=== PATIENT | male | born 1985 | race Caucasian/White ===

== ENCOUNTER 2018-09-08 23:50 | Emergency (ER) | payer SELFPAY ==
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
== END 2018-09-09 00:22 | disposition left against medical advice (07) ==
LOC: ER 23:50
DX: M79.602 Pain in left arm (principal); M79.604 Pain in right leg; V89.2XXA Person injured in unspecified motor-vehicle accident, traffic, initial encounter
CPT/HCPCS: 99284

== ENCOUNTER 2019-04-05 09:58 | Emergency (ER) | payer SELFPAY ==
--- NOTE | 2019-04-05 11:28 | RAD REPORT ---
EXAM DESCRIPTION: CT - Head Brain Wo Cont - 04/05/2019 11:18 am CLINICAL HISTORY: HEADACHE COMPARISON: No comparisons TECHNIQUE: All CT scans are performed using dose optimization technique as appropriate and may inclu de automated exposure control or mA/KV adjustment according to patient size. FINDINGS: No intracranial hemorrhage, hydrocephalus or extra-axial fluid collection.No areas of brai n edema or evidence of midline shift. Moderate fluid is seen in the right maxillary antrum. The paranasal sinuses and mastoids are otherwis e clear. The calvarium is intact. IMPRESSION: No acute intracranial abnormality.
[2019-04-05] MEDS ORDERED: NA CHLORIDE 0.9% 1,000 ML ONE (11:35)
[2019-04-05] MEDS ORDERED: NA CHLORIDE 0.9% 100 ML IV ONE (11:35)
[2019-04-05] MEDS ORDERED: METOCLOPRAMIDE 10 MG/2mL INJ ONE (11:35)
[2019-04-05] MEDS ORDERED: DIPHENHYDRAMINE 50 MG/ML VIAL ONE (11:35)
[2019-04-05 11:57] LABS: Absolute Lymphocytes (CBC) 1.5 K/uL (0.7-4.9); Absolute Monocytes 0.3 K/uL (0.1-1.3); Absolute Neutrophil 4.7 K/uL (1.8-8.0); Basophils % 1.1 % (0-1.3); Eosinophils % 1.2 % (0-4.4); Hematocrit 47.3 % (39.6-49.0); Lymphocytes % 22.7 % (15.3-44.8); MPV 7.8 fL (7.6-11.3); Monocytes % 4.8 % (3.3-12.3); RBC Red Blood Cell Count 5.16 M/uL (4.33-5.43)
[2019-04-05 12:06] LABS: Potassium 3.8 mmol/L (3.5-5.1)
--- NOTE | 2019-04-05 13:37 | EDPHYS ---
Physician Documentation [facility] Name: Jules Amos Age: 33 yrs Sex: Male : 1985 Arrival Date: 04/05/2019 Time: 10:06 Bed 15 Private MD: None, None ED Physician Juan Miguel Hale HPI: 04/05 11:08 This 33 yrs old Male presents to ER via Carried with complaints of Headache. rn 11:08 The patient complains of pain to the forehead, right protestant and left protestant. The rn patient describes the headache as aching, throbbing. Onset: The symptoms/episode began/occurred 2 day(s) ago. Severity of symptoms: At its worst the pain was moderate, in the emergency department the pain is unchanged. The symptoms are alleviated by nothing. the symptoms are aggravated by lights, stress. The patient has experienced similar episodes in the past. The patient has not recently seen a physician. REports hx of headache but not this bad, this one worse because not going away, took hydrocodone, no trauma, no fever, doesn't feel sick, no sick contacts. NO focal neurological problems. Reports threw up once due to pain.. Historical: - Allergies: 10:09 No Known Allergies; sv - PMHx: 10:09 Seizures; sv - PSHx: 10:09 wrist; sv - Immunization history:: Adult Immunizations up to date. - Social history:: Smoking status: Patient uses tobacco products, smokes one-half pack cigarettes per day. - Ebola Screening: : No symptoms or risks identified at this time. - Family history:: not pertinent. - Hospitalizations: : No recent hospitalization is reported. ROS: 11:08 Constitutional: Negative for fever, chills, and weight loss, Eyes: Negative for injury, rn pain, redness, and discharge, ENT: Negative for injury, pain, and discharge, Neck: Negative for injury, pain, and swelling, Cardiovascular: Negative for chest pain, palpitations, and edema, Respiratory: Negative for shortness of breath, cough, wheezing, and pleuritic chest pain, Abdomen/GI: Negative for abdominal pain, diarrhea, and constipation, MS/Extremity: Negative for injury and deformity, Skin: Negative for injury, rash, and discoloration, Neuro: Negative for numbness, tingling, and seizure. Exam: 11:10 Constitutional: This is a well developed, well nourished patient who is awake, alert, rn appears uncomfortable, covering face with pillow Head/Face: Normocephalic, atraumatic. Eyes: Pupils equal round and reactive to light, extra-ocular motions intact. Lids and lashes normal. Conjunctiva and sclera are non-icteric and not injected. Cornea within normal limits. Periorbital areas with no swelling, redness, or edema. ENT: MMM Neck: Trachea midline, no thyromegaly or masses palpated, and no cervical lymphadenopathy. Supple, full range of motion without nuchal rigidity, or vertebral point tenderness. No Meningismus. Skin: Warm, dry with normal turgor. Normal color with no rashes, no lesions, and no evidence of cellulitis. MS/ Extremity: Pulses equal, no cyanosis. Neurovascular intact. Full, normal range of motion. Equal circumference. Neuro: Awake and alert, GCS 15, oriented to person, place, time, and situation. Cranial nerves II-XII grossly intact. Motor strength 5/5 in all extremities. Sensory grossly intact. Cerebellar exam normal. Vital Signs: 10:09 BP 143 / 95; Pulse 94; Resp 18; Temp 98.4(O); Pulse Ox 99% ; Weight 81.65 kg; Height 6 sv ft. 1 in. (185.42 cm); Pain 10/10; 11:51 BP 132 / 86; Pulse 71; Resp 17; Temp 98.2(O); Pulse Ox 100% on R/A; mh5 12:50 BP 127 / 81; Pulse 72; Resp 18; Temp 98.0(O); Pulse Ox 100% on R/A; mh5 10:09 Body Mass Index 23.75 (81.65 kg, 185.42 cm) sv Charli Coma Score: 13:34 Eye Response: spontaneous(4). Verbal Response: oriented(5). Motor Response: obeys rn commands(6). Total: 15. MDM: 11:00 Patient medically screened. rn 13:34 Differential diagnosis: cluster headache, hypertensive headache, migraine, tension rn headache, vasomotor headache, flu/mono. Data reviewed: vital signs, nurses notes, lab test result(s), radiologic studies, CT scan, and as a result, I will discharge patient. Counseling: I had a detailed discussion with the patient and/or guardian regarding: the historical points, exam findings, and any diagnostic results supporting the discharge/admit diagnosis, lab results, radiology results, the need for outpatient follow up, to return to the emergency department if symptoms worsen or persist or if there are any questions or concerns that arise at home. Response to treatment: the patient's symptoms have markedly improved after treatment, and as a result, I will discharge patient. Special discussion: I discussed with the patient/guardian in detail that at this point there is no indication for admission to the hospital. It is understood, however, that if the symptoms persist or worsen the patient needs to return immediately for re-evaluation. ED course: Patient sleeping, pain markedly improved, ct head neg, w/u neg, will dc home as migraine.. 04/05 11:07 Order name: CBC with Diff; Complete Time: 12:50 rn 04/05 11:07 Order name: Basic Metabolic Panel; Complete Time: 12:50 rn 04/05 11:07 Order name: Flu; Complete Time: 12:50 rn 04/05 11:07 Order name: CT Head Brain wo Cont; Complete Time: 11:35 rn 04/05 11:10 Order name: [place] Screen Profile; Complete Time: 12:50 rn 04/05 11:07 Order name: IV Start; Complete Time: 11:35 rn Administered Medications: 11:34 Drug: NS 0.9% 1000 ml Route: IV; Rate: 1000 ml; Site: right antecubital; ph 13:55 Follow up: IV Status: Completed infusion; IV Intake: 1000ml ss 11:34 Drug: Benadryl 50 mg Route: IVP; Site: right antecubital; ph 13:55 Follow up: Response: No adverse reaction; Pain is decreased ss 11:35 Drug: Reglan 10 mg {Note: mixed w/ 100mL NS.} Route: IVP; Site: right antecubital; ph 13:55 Follow up: Response: No adverse reaction; Pain is decreased ss Disposition: 04/05/19 13:35 Discharged to Home. Impression: Migraine. - Condition is Stable. - Discharge Instructions: Migraine Headache. - Medication Reconciliation Form, Thank You Letter, Antibiotic Education, Prescription Opioid Use form. - Follow up: Private Physician; When: As needed; Reason: Recheck today's complaints, Re-evaluation by your physician. - Problem is new. - Symptoms have improved. Signatures: Dispatcher [employer] Jess Ward, RN RN Juan Miguel Jean Baptiste MD MD rn Smirch, Shelby, RN RN ss Hall, Patricia, RN RN ph Corrections: (The following items were deleted from the chart) 13:56 13:35 04/05/2019 13:35 Discharged to Home. Impression: Migraine. Condition is Stable. ss Forms are Medication Reconciliation Form, Thank You Letter, Antibiotic Education, Prescription Opioid Use. Follow up: Private Physician; When: As needed; Reason: Recheck today's complaints, Re-evaluation by your physician. Problem is new. Symptoms have improved. rn
--- NOTE | 2019-04-05 13:37 | ER ---
Nurse's Notes [facility] Name: Jules Amos Age: 33 yrs Sex: Male : 1985 Arrival Date: 04/05/2019 Time: 10:06 Bed 15 Private MD: None, None Diagnosis: Migraine Presentation: 04/05 10:06 Presenting complaint: Patient states: headache behind eyes and temporal area, nausea sv since today. Transition of care: patient was not received from another setting of care. Onset of symptoms was April 05, 2019. Risk Assessment: Do you want to hurt yourself or someone else? Patient reports no desire to harm self or others. Care prior to arrival: Medication(s) given: hydrocodone. 10:06 Method Of Arrival: Carried sv 10:06 Acuity: VIDHI 3 sv 11:38 Initial Sepsis Screen: Does the patient meet any 2 criteria? No. Patient's initial ph sepsis screen is negative. Does the patient have a suspected source of infection? No. Patient's initial sepsis screen is negative. Triage Assessment: 10:09 Headache History: The patient has had previous headaches and this one is different than sv previous episodes, and this one is more severe than previous episodes. General: Appears in no apparent distress. uncomfortable, well developed, Behavior is calm, cooperative, appropriate for age. Pain: Complains of pain in right eye, left eye, right rastafarian and left rastafarian Pain currently is 10 out of 10 on a pain scale. Pain began this morning. Neuro: Level of Consciousness is awake, alert, obeys commands, Oriented to person, place, time, situation, Moves all extremities. Full function. Respiratory: Respiratory effort is even, unlabored, Respiratory pattern is regular, symmetrical. Derm: Skin is pink, warm \\T\\ dry. 11:39 Pain: Also complains of photophobia. ph Historical: - Allergies: 10:09 No Known Allergies; sv - PMHx: 10:09 Seizures; sv - PSHx: 10:09 wrist; sv - Immunization history:: Adult Immunizations up to date. - Social history:: Smoking status: Patient uses tobacco products, smokes one-half pack cigarettes per day. - Ebola Screening: : No symptoms or risks identified at this time. - Family history:: not pertinent. - Hospitalizations: : No recent hospitalization is reported. Screenin:38 Abuse screen: Denies threats or abuse. Denies injuries from another. Nutritional ph screening: No deficits noted. Tuberculosis screening: No symptoms or risk factors identified. Fall Risk None identified. Assessment: 11:35 General: Appears in no apparent distress. uncomfortable, well groomed, Behavior is ph calm, cooperative, appropriate for age, Reports fatigue for 1-2 days, Denies fever, feeling ill. Pain: Complains of pain in forehead and left rastafarian and right rastafarian Pain currently is 7 out of 10 on a pain scale. Pain began "last night". Neuro: Level of Consciousness is awake, alert, obeys commands, Oriented to person, place, time, situation, [place] Automatic are equal bilaterally Moves all extremities. Speech is normal, Facial symmetry appears normal, Reports dizziness, headache photophobia. Cardiovascular: Capillary refill < 3 seconds in bilateral fingers Patient's skin is warm and dry. Respiratory: Airway is patent Respiratory effort is even, unlabored, Respiratory pattern is regular, symmetrical. GI: Reports vomiting, x 1 last night Patient currently denies abdominal pain, diarrhea, nausea. Derm: Skin is intact, is healthy with good turgor, Skin is pink, warm \\T\\ dry. Musculoskeletal: Circulation, motion, and sensation intact. Range of motion: intact in all extremities. Vital Signs: 10:09 BP 143 / 95; Pulse 94; Resp 18; Temp 98.4(O); Pulse Ox 99% ; Weight 81.65 kg; Height 6 sv ft. 1 in. (185.42 cm); Pain 10/10; 11:51 BP 132 / 86; Pulse 71; Resp 17; Temp 98.2(O); Pulse Ox 100% on R/A; mh5 12:50 BP 127 / 81; Pulse 72; Resp 18; Temp 98.0(O); Pulse Ox 100% on R/A; mh5 10:09 Body Mass Index 23.75 (81.65 kg, 185.42 cm) sv [place] Coma Score: 13:34 Eye Response: spontaneous(4). Verbal Response: oriented(5). Motor Response: obeys rn commands(6). Total: 15. ED Course: 10:06 Patient arrived in ED. mr 10:06 None, None is Private Physician. mr 10:08 Triage completed. sv 10:09 Arm band placed on. sv 10:59 Kay Gutiérrez, RN is Primary Nurse. ph 11:00 Juan Miguel Hale MD is Attending Physician. rn 11:17 CT completed. Patient tolerated procedure well. Patient moved back from CT. ls3 11:19 CT Head Brain wo Cont In Process Unspecified. EDMS 11:25 Initial lab(s) drawn, by ED staff, sent to lab. Inserted saline lock: 20 gauge in right ph antecubital area, using aseptic technique. Blood collected. 11:36 Initial lab(s) drawn, by in, sent to lab. Flu and/or RSV swab sent to lab. 5 11:37 Patient has correct armband on for positive identification. Bed in low position. Call 5 light in reach. Side rails up X 1. Adult w/ patient. Warm blanket given. Pulse ox on. NIBP on. 11:37 [place] Screen Profile Sent. 5 11:37 Flu Sent. 5 11:38 Basic Metabolic Panel Sent. 5 11:38 CBC with Diff Sent. 5 11:39 No provider procedures requiring assistance completed. ph 13:52 IV discontinued, intact, bleeding controlled, No redness/swelling at site. Pressure ss dressing applied. Administered Medications: 11:34 Drug: NS 0.9% 1000 ml Route: IV; Rate: 1000 ml; Site: right antecubital; ph 13:55 Follow up: IV Status: Completed infusion; IV Intake: 1000ml ss 11:34 Drug: Benadryl 50 mg Route: IVP; Site: right antecubital; ph 13:55 Follow up: Response: No adverse reaction; Pain is decreased ss 11:35 Drug: Reglan 10 mg {Note: mixed w/ 100mL NS.} Route: IVP; Site: right antecubital; ph 13:55 Follow up: Response: No adverse reaction; Pain is decreased ss Intake: 13:55 IV: 1000ml; Total: 1000ml. ss Outcome: 13:35 Discharge ordered by . rn 13:52 Discharged to home ambulatory. ss 13:52 Condition: good 13:52 Discharge instructions given to patient, family, Instructed on discharge instructions, follow up and referral plans. Demonstrated understanding of instructions, follow-up care, medications. 13:56 Patient left the ED. ss Signatures: Dispatcher [facility] Jess Patel RN RN sv Rivera, Mary mr Juan Miguel Hale MD MD rn Smirch, Shelby, RN RN Kay Gutiérrez RN RN [place], [place] [id number] Patricio Boyce 3 Corrections: (The following items were deleted from the chart) 10:10 10:09 BP 143 / 95; Pulse 94bpm; Resp 18bpm; Pulse Ox 99%; 81.65 kg; Height 6 ft. 1 in.; sv BMI: 23.7; Pain 09/02; sv 13:55 13:55 IV Status: Completed infusion [facility]
== END 2019-04-05 13:56 | disposition home or self-care (01) ==
LOC: ER 09:58
DX: G43.909 Migraine, unspecified, not intractable, without status migrainosus (principal); F17.210 Nicotine dependence, cigarettes, uncomplicated
CPT/HCPCS: 36415; 70450; 80048; 85025; 86308; 87804; 96361; 96374; 96375; 99284; J2765; J7030

== ENCOUNTER 2023-09-13 21:55 | Emergency (ER) | payer SELFPAY ==
--- NOTE | 2023-09-13 22:39 | RAD REPORT ---
EXAM DESCRIPTION: US - Scrotum Testicles - 09/13/2023 10:30 pm CLINICAL HISTORY: right testicle pain COMPARISON: No comparisons TECHNIQUE: Sonographic grayscale and color flow images of the scrotum were obtained. FINDINGS: The right testicle measures 4.2 x 2.1 x 3.4 cm. No intratesticular masses or evidence of t esticular torsion. The left testicle measures 3.9 x 2.9 x 3.3 cm. No intratesticular masses or evidence of testicular to rsion. Both epididymides are normal in size and appearance. Small bilateral hydroceles, larger on the right. IMPRESSION: Small bilateral hydroceles, otherwise no acute findings.
--- NOTE | 2023-09-13 23:16 | EDPHYS ---
Physician Documentation [facility] Name: Jules Amos Age: 38 yrs Sex: Male : 1985 Arrival Date: 09/13/2023 Time: 21:55 Bed IW4 Private MD: ED Physician Daren Self HPI: 09/13 23:15 This 38 yrs old Male presents to ER via Ambulatory with complaints of Testicular Pain. ms3 23:15 38-year-old male with past medical history of ADHD presents to the emergency department ms3 for right testicular pain patient states he has been having intermittent pain after his right testicle falling on his underwear when pulling his pants up after urinating. Patient states the pain is currently a 3/10 dull and constant.. Historical: - Allergies: 22:06 No Known Allergies; ap3 - Home Meds: 22:06 Adderall XR Oral [Active]; ap3 - PMHx: 22:06 ADHD; ap3 - Immunization history:: Client reports having NOT received the Covid vaccine. - Social history:: Smoking status: Patient reports the use of cigarette tobacco products, smokes one-half pack cigarettes per day, Patient uses street drugs, marijuana. ROS: 23:15 Constitutional: Negative for fever, and chills. Neck: Negative for injury, pain, and ms3 swelling, Cardiovascular: Negative for chest pain, and palpitations. Respiratory: Negative for shortness of breath, cough, wheezing, and pleuritic chest pain, Abdomen/GI: Negative for abdominal pain, nausea, vomiting, diarrhea, and constipation, 23:15 : Positive for testicular pain 23:15 All other systems are negative, Exam: 23:15 Constitutional: This is a well developed, well nourished patient who is awake, alert, ms3 and in no acute distress. Head/Face: Normocephalic, atraumatic. Neck: Trachea midline, no cervical lymphadenopathy. Supple, full range of motion without nuchal rigidity, or vertebral point tenderness. No Meningismus. Chest/axilla: Normal chest wall appearance and motion. Nontender with no deformity. Cardiovascular: Regular rate and rhythm with a normal S1 and S2. No gallops, murmurs, or rubs. Normal PMI, no JVD. No pulse deficits. Respiratory: Lungs have equal breath sounds bilaterally, clear to auscultation and percussion. No rales, rhonchi or wheezes noted. No increased work of breathing, no retractions or nasal flaring. Abdomen/GI: Soft, non-tender, with normal bowel sounds. No distension or tympany. No guarding or rebound. No evidence of tenderness throughout. Skin: Warm, dry with normal turgor. Normal color with no rashes, no lesions, and no evidence of cellulitis. MS/ Extremity: Pulses equal, no cyanosis. Neurovascular intact. Full, normal range of motion. 23:15 : Patient deferred, Vital Signs: 22:05 BP 153 / 104; Pulse 99; Resp 19; Temp 98.1; Pulse Ox 100% ; Weight 91.17 kg; Pain 4/10; ap3 22:05 Pain Scale: Adult ap3 MDM: 22:20 Patient medically screened. ms3 23:15 Differential diagnosis: Testicular torsion versus hematoma versus hydrocele. Data ms3 reviewed: vital signs, nurses notes, and as a result, I will discharge patient. Counseling: I had a detailed discussion with the patient and/or guardian regarding the historical points, exam findings, and any diagnostic results supporting the discharge/admit diagnosis, radiology results, the need for outpatient follow up, to return to the emergency department if symptoms worsen or persist or if there are any questions or concerns that arise at home. Special discussion: I discussed with the patient/guardian in detail that at this point there is no indication for admission to the hospital. It is understood, however, that if the symptoms persist or worsen the patient needs to return immediately for re-evaluation. ED course: Discussed ultrasound results with patient. Patient to follow-up with Dr. Burt in 2 to 3 days. Patient understands and agrees with plan. All questions were answered. Return precautions discussed include worsening symptoms, or any other concerns. 09/13 22:08 Order name: US Scrotum Testicles; Complete Time: 22:44 ms3 Administered Medications: No medications were administered Disposition Summary: 09/13/23 23:15 Discharge Ordered Notes: Location: Home ms3 Condition: Stable ms3 Diagnosis - Right testicular pain ms3 - Hydrocele, unspecified ms3 Followup: ms3 - With: Marcos Burt MD - When: 2 - 3 days - Reason: Recheck today's complaints Discharge Instructions: - Discharge Summary Sheet ms3 - Hydrocele, Adult ms3 Forms: - Medication Reconciliation Form ms3 - Thank You Letter ms3 - Antibiotic Education ms3 - Prescription Opioid Use ms3 - Patient Portal Instructions ms3 - Leadership Thank You Letter ms3 Signatures: Dispatcher [employer] Elyssa Daigle, RN RN ap3 Daren Self, DO ms3
--- NOTE | 2023-09-13 23:16 | ER ---
Nurse's Notes [facility] Name: Jules Amos Age: 38 yrs Sex: Male : 1985 Arrival Date: 09/13/2023 Time: 21:55 Bed IW4 Private MD: Diagnosis: Right testicular pain;Hydrocele, unspecified Presentation: 09/13 22:05 Chief complaint: Patient states: he started having right testicular pain after pulling ap3 his britches up this afternoon at approx 1400 today. patient reports intermittent pain since then. Coronavirus screen: At this time, the client does not indicate any symptoms associated with coronavirus-19. Ebola Screen: No symptoms or risks identified at this time. Initial Sepsis Screen: Does the patient meet any 2 criteria? No. Patient's initial sepsis screen is negative. Does the patient have a suspected source of infection? No. Patient's initial sepsis screen is negative. Risk Assessment: Do you want to hurt yourself or someone else? Patient reports no desire to harm self or others. Onset of symptoms was September 13, 2023 at 16:00. 22:05 Method Of Arrival: Ambulatory ap3 22:05 Acuity: VIDHI 2 ap3 Triage Assessment: 22:07 General: Appears uncomfortable, Behavior is calm, cooperative, appropriate for age. ap3 Pain: Complains of pain in right testicle Pain currently is 4 out of 10 on a pain scale. at worst was 9 out of 10 on a pain scale. Pain began 1600. Neuro: Level of Consciousness is awake, alert, obeys commands, Oriented to person, place, time, situation. Cardiovascular: Patient's skin is warm and dry. Respiratory: Airway is patent Respiratory effort is even, unlabored, Respiratory pattern is regular, symmetrical. Historical: - Allergies: 22:06 No Known Allergies; ap3 - Home Meds: 22:06 Adderall XR Oral [Active]; ap3 - PMHx: 22:06 ADHD; ap3 - Immunization history:: Client reports having NOT received the Covid vaccine. - Social history:: Smoking status: Patient reports the use of cigarette tobacco products, smokes one-half pack cigarettes per day, Patient uses street drugs, marijuana. Screenin:08 [facility] ED Fall Risk Assessment (Adult) History of falling in the last 3 months, ap3 including since admission No falls in past 3 months (0 pts). Abuse screen: Denies threats or abuse. Nutritional screening: No deficits noted. Tuberculosis screening: No symptoms or risk factors identified. Vital Signs: 22:05 BP 153 / 104; Pulse 99; Resp 19; Temp 98.1; Pulse Ox 100% ; Weight 91.17 kg; Pain 4/10; ap3 22:05 Pain Scale: Adult ap3 ED Course: 22:01 Patient arrived in ED. ag3 22:04 Daren Self DO is Attending Physician. ms3 22:06 Triage completed. ap3 22:08 Arm band placed on left wrist. ap3 22:32 US Scrotum Testicles In Process Unspecified. EDMS 23:15 Marcos Burt MD is Referral Physician. ms3 23:24 Patient has correct armband on for positive identification. Provided Education on: ap3 discharge instructions. 23:24 No provider procedures requiring assistance completed. Patient did not have IV access ap3 during this emergency room visit. Administered Medications: No medications were administered Medication: 23:24 VIS not applicable for this client. ap3 Outcome: 23:15 Discharge ordered by . ms3 23:24 Discharged to home ambulatory, ap3 23:24 Condition: good 23:24 Discharge instructions given to patient, Instructed on discharge instructions, follow up and referral plans. Demonstrated understanding of instructions, follow-up care, 23:25 Patient left the ED. ap3 Signatures: Dispatcher [employer] EDHI Elyssa Lewis RN RN ap3 Mabel Leonard ag3 Daren Self DO DO ms3
== END 2023-09-13 23:25 | disposition home or self-care (01) ==
LOC: ER 21:55
DX: N43.3 Hydrocele, unspecified (principal)
CPT/HCPCS: 76870; 99282

== ENCOUNTER 2024-03-20 02:18 | Emergency (ER) | payer SELFPAY ==
[2024-03-20] MEDS ORDERED: DOXYCYCLINE 100 MG CAP PO ONE (02:49)
[2024-03-20] MEDS ORDERED: SMZ./TMP. 800/160 MG TABLET ONE (02:49)
--- NOTE | 2024-03-20 02:50 | EDPHYS ---
Physician Documentation [facility] Name: Jules Amos Age: 38 yrs Sex: Male : 1985 Arrival Date: 03/20/2024 Time: 02:18 Bed 15 Private MD: ED Physician Jeremi Nino HPI: 03/20 02:40 This 38 yrs old Male presents to ER via Ambulatory with complaints of Insect Bite. cp 02:40 The patient presents with a bite, by an insect. cp 02:40 The complaints affect the left quadriceps. Context: possible spider bite. cp 02:40 Onset: The symptoms/episode began/occurred 3 day(s) ago. cp 02:40 Associated signs and symptoms: Pertinent positives: warmth, erythema, Pertinent cp negatives calf tenderness, fever. Historical: - Allergies: 02:33 No Known Allergies; cm10 - PMHx: 02:33 adhd; Seizures; cm10 - PSHx: 02:33 Wrist; cm10 - Immunization history:: Adult Immunizations up to date. - Infectious Disease History:: Denies. - Social history:: Smoking status: Patient denies any tobacco usage or history of. Exam: 02:42 Head/Face: Normocephalic, atraumatic. cp 02:42 Constitutional: The patient appears in no acute distress, alert, awake, non-toxic, well developed, well nourished, 02:42 Cardiovascular: Rate: tachycardic, 02:42 Respiratory: the patient does not display signs of respiratory distress, Respirations: normal, no use of accessory muscles, labored breathing, is not present, Breath sounds: are clear throughout, no decreased breath sounds, no stridor, no wheezing, 02:42 Abdomen/GI: Exam negative for discomfort, distension, guarding, Inspection: abdomen appears normal, 02:42 Skin: abscess, not appreciated, area above left knee patella appears with mild induration, mild swelling, surrounding eythema. 02:42 Neuro: Orientation: to person, place \T\ time. Mentation: is normal, Vital Signs: 02:32 BP 154 / 96; Pulse 102; Resp 18; Temp 98.3(O); Pulse Ox 100% on R/A; Weight 90.72 kg cm10 (R); Height 6 ft. 1 in. ; Pain 5/10; 02:32 Body Mass Index 26.39 (90.72 kg, 185.42 cm) cm10 02:32 Pain Scale: Adult cm10 MDM: 02:36 Patient medically screened. cp Administered Medications: 02:53 Drug: Doxycycline PO 200 mg PO once Route: PO; pf1 03:15 Follow up: Response: No adverse reaction pf1 02:53 Drug: Trimethoprim-Sulfamethoxazole PO (160 mg-800 mg (DS) 2 tabs PO once Route: PO; pf1 03:15 Follow up: Response: No adverse reaction pf1 Disposition Summary: 03/20/24 02:50 Discharge Ordered Notes: Location: Home cp Problem: new cp Symptoms: have improved cp Condition: Stable cp Diagnosis - Cellulitis of left lower limb cp Followup: cp - With: Private Physician - When: 2 - 3 days - Reason: Worsening of condition Discharge Instructions: - Discharge Summary Sheet cp - Cellulitis, Adult cp Forms: - Medication Reconciliation Form cp - Antibiotic Education cp - Prescription Opioid Use cp - Patient Portal Instructions cp - Leadership Thank You Letter cp Prescriptions: - Doxycycline Hyclate 100 mg Oral Tablet - take 1 tablet ORAL route every 12 hours; 20 tablet; Refills: 0, Product cp Selection Permitted - Diclofenac Sodium 75 mg Oral Tablet Sustained Release - take 1 tablet ORAL route 2 times per day; 30 tablet; Refills: 0, Product cp Selection Permitted - Bactrim DS 800-160 mg Oral Tablet - take 1 tablet ORAL route every 12 hours for 10 days; 20 tablet; Refills: 0, cp Product Selection Permitted Addendum: 03/23/2024 22:01 Co-signature as Attending Physician, Jeremi Nino MD I agree with the assessment and c mitchell plan of care. Signatures: Jeremi Nino MD MD cha Page, Corey, PA PA cp Naomi Hutchins RN RN pf1 Maria Black RN RN cm10
--- NOTE | 2024-03-20 02:50 | ER ---
Nurse's Notes [facility] Name: Jules Amos Age: 38 yrs Sex: Male : 1985 Arrival Date: 03/20/2024 Time: 02:18 Bed 15 Private MD: Diagnosis: Cellulitis of left lower limb Presentation: 03/20 02:32 Chief complaint: Patient states: Unknown bug bite above left knee. Pt states that he cm10 noticed it on Friday and the redness has gotten worse. No fevers at home. Coronavirus screen: Client denies travel out of the [place] in the last 14 days. At this time, the client does not indicate any symptoms associated with coronavirus-19. Ebola Screen: Patient denies travel to an Ebola-affected area in the 21 days before illness onset. No symptoms or risks identified at this time. Initial Sepsis Screen: Does the patient meet any 2 criteria? HR > 90 bpm. Does the patient have a suspected source of infection? No. Patient's initial sepsis screen is negative. Risk Assessment: Do you want to hurt yourself or someone else? Patient reports no desire to harm self or others. Onset of symptoms was March 20, 2024. 02:32 Method Of Arrival: Ambulatory cm10 02:32 Acuity: VIDHI 4 cm10 Triage Assessment: 02:34 Bite description: bite sustained to left quadriceps by an unknown animal, animal cm10 information: vaccination(s) is not applicable. General: Appears in no apparent distress. comfortable, Behavior is calm, cooperative. Pain: Complains of pain in left leg Pain does not radiate. Pain currently is 5 out of 10 on a pain scale. Pain began 2-3 days ago. Is continuous. Neuro: No deficits noted. Level of Consciousness is awake, alert, obeys commands, Oriented to person, place, time, situation. Respiratory: No deficits noted. Airway is patent Respiratory effort is even, unlabored, Respiratory pattern is regular, symmetrical. Derm: Skin is intact, PT has noted redness to left leg above left thigh. Musculoskeletal: No deficits noted. Range of motion: intact in all extremities. Historical: - Allergies: 02:33 No Known Allergies; cm10 - PMHx: 02:33 adhd; Seizures; cm10 - PSHx: 02:33 Wrist; cm10 - Immunization history:: Adult Immunizations up to date. - Infectious Disease History:: Denies. - Social history:: Smoking status: Patient denies any tobacco usage or history of. Screenin:36 [facility] ED Fall Risk Assessment (Adult) History of falling in the last 3 months, cm10 including since admission No falls in past 3 months (0 pts) Confusion or Disorientation No (0 pts) Intoxicated or Sedated No (0 pts) Impaired Gait No (0 pts) Mobility Assist Device Used No (0 pt) Altered Elimination No (0 pt) Score/Fall Risk Level 0 - 2 = Low Risk Oriented to surroundings, Maintained a safe environment, Hourly rounding (assess needs \T\ fall precautionary measures) done. Abuse screen: Denies threats or abuse. Denies injuries from another. Nutritional screening: No deficits noted. Tuberculosis screening: No symptoms or risk factors identified. Assessment: 02:41 General: Appears in no apparent distress. comfortable, well groomed, well developed, pf1 Behavior is calm, cooperative, appropriate for age, quiet. Pain: Complains of pain in left leg and left knee Pain currently is 4 out of 10 on a pain scale. Neuro: No deficits noted. Level of Consciousness is awake, alert, obeys commands, Oriented to person, place, time, situation. Cardiovascular: No deficits noted. Capillary refill < 3 seconds Patient's skin is warm and dry. Respiratory: No deficits noted. Airway is patent Respiratory effort is even, unlabored, Respiratory pattern is regular, symmetrical. GI: No deficits noted. No signs and/or symptoms were reported involving the gastrointestinal system. : No deficits noted. No signs and/or symptoms were reported regarding the genitourinary system. EENT: No deficits noted. No signs and/or symptoms were reported regarding the EENT system. Derm: Skin is red, redness to left leg/knee. Vital Signs: 02:32 BP 154 / 96; Pulse 102; Resp 18; Temp 98.3(O); Pulse Ox 100% on R/A; Weight 90.72 kg cm10 (R); Height 6 ft. 1 in. ; Pain 5/10; 02:32 Body Mass Index 26.39 (90.72 kg, 185.42 cm) cm10 02:32 Pain Scale: Adult cm10 ED Course: 02:22 Patient arrived in ED. gm2 02:23 Jeremi Marquez PA is PHCP. cp 02:23 Jeremi Nino MD is Attending Physician. cp 02:33 Triage completed. cm10 02:35 Arm band placed on Patient placed in an exam room, on a stretcher. cm10 02:36 Patient has correct armband on for positive identification. Provided Education on: ER cm10 process and procedures. 02:37 Naomi Hutchins, RN is Primary Nurse. pf1 03:15 No provider procedures requiring assistance completed. Patient did not have IV access pf1 during this emergency room visit. Administered Medications: 02:53 Drug: Doxycycline PO 200 mg PO once Route: PO; pf1 03:15 Follow up: Response: No adverse reaction pf1 02:53 Drug: Trimethoprim-Sulfamethoxazole PO (160 mg-800 mg (DS) 2 tabs PO once Route: PO; pf1 03:15 Follow up: Response: No adverse reaction pf1 Medication: 02:36 VIS not applicable for this client. cm10 Outcome: 02:50 Discharge ordered by MD. cp 03:15 Discharged to home ambulatory, pf1 03:15 Condition: stable pf1 03:15 Discharge instructions given to patient, Instructed on discharge instructions, follow up and referral plans. Demonstrated understanding of instructions, follow-up care, medications, Prescriptions given X 3, 03:15 Patient left the ED. pf1 Signatures: Jeremi Marquez PA PA cp Naomi Hutchins, RN RN pf1 Maria Black RN RN cm10 Jazlyn Hollins gm2 Corrections: (The following items were deleted from the chart) 03:32 03:31 Patient left the ED. pf1 pf1
[2024-03-20 03:45] VITALS: BP 154/96; TEMP 98.3; O2SAT 100
== END 2024-03-20 03:31 | disposition home or self-care (01) ==
LOC: ER 02:18
DX: L03.116 Cellulitis of left lower limb (principal)
CPT/HCPCS: 99283

== ENCOUNTER 2024-07-31 10:00 | Emergency (ER) | payer SELFPAY ==
[2024-07-31] MEDS ORDERED: LIDOCAINE 2% W/EPI 1:200,000 MPF 20 ML VIAL IM ONE (11:21)
--- NOTE | 2024-07-31 11:58 | EDPHYS ---
Physician Documentation [facility] Name: Jules Amos Age: 39 yrs Sex: Male : 1985 Arrival Date: 07/31/2024 Time: 10:00 Bed 12 Private MD: ED Physician Jeremi Nino HPI: 07/31 11:51 This 39 yrs old Male presents to ER via Ambulatory with complaints of Arm artem Injury. 11:51 The patient or guardian complains of a laceration, 4.5 cm(s). The complaints affect the artem right tricep. Context: The problem was sustained at home. Onset: The symptoms/episode began/occurred 1 day(s) ago. Treatment prior to arrival includes: no previous treatment. Modifying factors: The symptoms are alleviated by nothing. the symptoms are aggravated by nothing. Associated signs and symptoms: The patient has no apparent associated signs or symptoms. Associated signs and symptoms: Pertinent positives: pain. Severity of symptoms: At their worst the symptoms were mild, in the emergency department the symptoms are unchanged. The patient has not experienced similar symptoms in the past. Historical: - Allergies: 10:16 No Known Allergies; db - PMHx: 10:16 adhd; Seizures; db - PSHx: 10:16 wrist; db - Immunization history:: Adult Immunizations up to date. - Infectious Disease History:: Denies. - Family history:: not pertinent. - Social history:: Smoking status: Smoking status: Patient denies any tobacco usage or history of. ROS: 11:51 Constitutional: Negative for fever, chills, and weight loss, Eyes: Negative for injury, artem pain, redness, and discharge, ENT: Negative for injury, pain, and discharge, Neck: Negative for injury, pain, and swelling, Cardiovascular: Negative for chest pain, palpitations, and edema, Respiratory: Negative for shortness of breath, cough, wheezing, and pleuritic chest pain, Abdomen/GI: Negative for abdominal pain, nausea, vomiting, diarrhea, and constipation, Back: Negative for injury and pain, : Negative for injury, bleeding, discharge, and swelling, Skin: Negative for injury, rash, and discoloration, Neuro: Negative for headache, weakness, numbness, tingling, and seizure, Psych: Negative for depression, anxiety, suicide ideation, homicidal ideation, and hallucinations, Allergy/Immunology: Negative for hives, rash, and allergies, Endocrine: Negative for neck swelling, polydipsia, polyuria, polyphagia, and marked weight changes, Hematologic/Lymphatic: Negative for swollen nodes, abnormal bleeding, and unusual bruising, 11:51 MS/extremity: Positive for laceration, of the right tricep, Exam: 11:51 Constitutional: This is a well developed, well nourished patient who is awake, alert, artem and in no acute distress. Head/Face: Normocephalic, atraumatic. Eyes: Pupils equal round and reactive to light, extra-ocular motions intact. Lids and lashes normal. Conjunctiva and sclera are non-icteric and not injected. Cornea within normal limits. Periorbital areas with no swelling, redness, or edema. ENT: Nares patent. No nasal discharge, no septal abnormalities noted. Tympanic membranes are normal and external auditory canals are clear. Oropharynx with no redness, swelling, or masses, exudates, or evidence of obstruction, uvula midline. Mucous membranes moist. Neck: Trachea midline, no thyromegaly or masses palpated, and no cervical lymphadenopathy. Supple, full range of motion without nuchal rigidity, or vertebral point tenderness. No Meningismus. Chest/axilla: Normal chest wall appearance and motion. Nontender with no deformity. No lesions are appreciated. Cardiovascular: Regular rate and rhythm with a normal S1 and S2. No gallops, murmurs, or rubs. Normal PMI, no JVD. No pulse deficits. Respiratory: Lungs have equal breath sounds bilaterally, clear to auscultation and percussion. No rales, rhonchi or wheezes noted. No increased work of breathing, no retractions or nasal flaring. Abdomen/GI: Soft, non-tender, with normal bowel sounds. No distension or tympany. No guarding or rebound. No evidence of tenderness throughout. Back: No spinal tenderness. No costovertebral tenderness. Full range of motion. Male : Normal genitalia with no discharge or lesions. Skin: Warm, dry with normal turgor. Normal color with no rashes, no lesions, and no evidence of cellulitis. Neuro: Awake and alert, GCS 15, oriented to person, place, time, and situation. Cranial nerves II-XII grossly intact. Motor strength 5/5 in all extremities. Sensory grossly intact. Cerebellar exam normal. Normal gait. Psych: Awake, alert, with orientation to person, place and time. Behavior, mood, and affect are within normal limits. 11:51 Musculoskeletal/extremity: ROM: no acute changes, intact in all extremities, full active range of motion, full passive range of motion, Circulation is intact in all extremities. Sensation intact. Compartment Syndrome exam of affected extremity: is normal. Weight bearing: able to fully bear weight, Tendon exam: specific tendon testing normal through active and passive range of motion DVT Exam: No signs of deep vein thrombosis. no pain, no swelling, no tenderness, negative Homans' sign noted on exam, no appreciated bluish discoloration, no erythema, no increased warmth, Vital Signs: 10:24 BP 151 / 101; Temp 98(O); Pulse Ox 99% on R/A; Weight 92.99 kg; cc6 12:20 BP 135 / 97; Pulse 85; Resp 17; Temp 98; Pulse Ox 99% ; Pain 0/10; ll1 12:20 Pain Scale: Adult ll1 Laceration: 11:51 Wound Repair of 4.5cm ( 1.8in ) subcutaneous laceration to right arm. Linear shaped.. [facility] Skin/tissue flap noted.. Distal neuro/vascular/tendon intact. Anesthesia: Local anesthetic administered with 10 mls of 1% lidocaine w/ Epi. Wound prep: Simple cleansing with betadine by me. Skin closed with 4 4-0 Prolene using interrupted sutures and sterile technique. Dressed with Bacitracin, pressure dressing, non-adherent dressing. Patient tolerated well. MDM: 10:16 Patient medically screened. [facility] 11:51 Differential diagnosis: contusion. Data reviewed: vital signs, nurses notes. [facility] Consideration of Admission/Observation Escalation of care including admission/observation considered. I considered the following discharge prescriptions or medication management in the emergency department Medications were administered in the Emergency Department. See MAR. Test considered but Not performed: Labs: no labs. no x ray. Historians other than the Patient: Family Member: son well informed. Care significantly affected by the following chronic conditions: seizures, adhd. Counseling: I had a detailed discussion with the patient and/or guardian regarding the historical points, exam findings, and any diagnostic results supporting the discharge/admit diagnosis, the need for outpatient follow up, a family practitioner. 07/31 11:50 Order name: Dressing - Wound; Complete Time: 12:20 [facility] 07/31 11:50 Order name: Gloves, Sterile; Complete Time: 12:49 [facility] 07/31 11:50 Order name: Prolene, Sutures; Complete Time: 12:49 [facility] 07/31 11:50 Order name: Setup Suture Tray; Complete Time: 12:49 artem Administered Medications: 12:20 Drug: Boostrix Tdap IM 0.5 ml IM once; as a single dose Route: IM; Site: right deltoid; ll1 12:48 Follow up: Response: No adverse reaction ll1 12:20 Drug: Cephalexin PO 500 mg PO once Route: PO; ll1 12:48 Follow up: Response: No adverse reaction ll1 12:20 Drug: Mupirocin Topical Ointment 2 % 1 application Topical once Route: Topical; Site: ll1 affected area; 12:48 Follow up: Response: No adverse reaction ll1 12:48 Drug: Lidocaine-Epinephrine Infiltration -1%: (1:100,000) 8 ml 20 ml Infiltration once; ll1 to bedside {Note: by Bryce Anna} Volume: 20 ml; Route: Infiltration; 12:49 Follow up: Response: No adverse reaction ll1 Disposition Summary: 07/31/24 11:58 Discharge Ordered Notes: Location: Home artem Problem: new artem Symptoms: have improved artem Condition: Stable artem Diagnosis - Laceration without foreign body of right forearm artem Followup: artem - With: Private Physician - When: 7 - 10 days - Reason: Recheck today's complaints, Staple/Suture removal, Re-evaluation by your physician Followup: artem - With: Chi Arnold MD - When: 7 - 10 days - Reason: Recheck today's complaints, Re-evaluation by your physician Discharge Instructions: - Discharge Summary Sheet artem - Laceration Care, Adult artem - Laceration Care, Adult, [id number] [facility] Forms: - Medication Reconciliation Form artem - Antibiotic Education artem - Prescription Opioid Use artem - Patient Portal Instructions [facility] - Leadership Thank You Letter [facility] Prescriptions: - Centany 2 % Topical ointment - apply 1 application TOPICAL route 3 times per day; 15 gram; Refills: 0, Product artem Selection Permitted - Cephalexin 500 mg Oral capsule - take 1 capsule ORAL route every 6 hours for 7 days; 28 capsule; Refills: 0, artem Product Selection Permitted Signatures: Jeremi Nino MD MD cha Lewis, Lynsay RN RN ll1 Ana Laura Gaviria RN RN db
--- NOTE | 2024-07-31 11:58 | ER ---
Nurse's Notes [facility] Name: Jules Amos Age: 39 yrs Sex: Male : 1985 Arrival Date: 07/31/2024 Time: 10:00 Bed 12 Private MD: Diagnosis: Laceration without foreign body of right forearm Presentation: 07/31 10:50 Coronavirus screen: Client denies travel out of the [place] in the last 14 days. At this ll1 time, the client does not indicate any symptoms associated with coronavirus-19. Ebola Screen: Patient denies travel to an Ebola-affected area in the 21 days before illness onset. Initial Sepsis Screen: Does the patient meet any 2 criteria? No. Patient's initial sepsis screen is negative. Does the patient have a suspected source of infection? No. Patient's initial sepsis screen is negative. Risk Assessment: Do you want to hurt yourself or someone else? Patient reports no desire to harm self or others. Onset of symptoms. 10:50 Method Of Arrival: Ambulatory ll1 10:50 Acuity: VIDHI 4 ll1 10:50 Chief complaint: Patient states: shelving fell onto R arm and cut him 20 min [employer]. ll1 Triage Assessment: 10:50 General: Appears uncomfortable, Behavior is calm, cooperative, appropriate for age. ll1 Pain: Complains of pain in right arm Quality of pain is described as aching. Derm: Reports laceration R FA, bleeding controlled. Musculoskeletal: Circulation, motion, and sensation intact. Capillary refill < 3 seconds, in right fingers. Reports pain in right arm. Injury Description: Laceration. Historical: - Allergies: 10:16 No Known Allergies; db - PMHx: 10:16 adhd; Seizures; db - PSHx: 10:16 wrist; db - Immunization history:: Adult Immunizations up to date. - Infectious Disease History:: Denies. - Family history:: not pertinent. - Social history:: Smoking status: Smoking status: Patient denies any tobacco usage or history of. Screenin:23 [facility] ED Fall Risk Assessment (Adult) History of falling in the last 3 months, ll1 including since admission No falls in past 3 months (0 pts) Confusion or Disorientation No (0 pts) Intoxicated or Sedated No (0 pts) Impaired Gait No (0 pts) Mobility Assist Device Used No (0 pt) Altered Elimination No (0 pt) Score/Fall Risk Level 0 - 2 = Low Risk Maintained a safe environment, Hourly rounding (assess needs \T\ fall precautionary measures) done. Abuse screen: Denies threats or abuse. Nutritional screening: No deficits noted. Tuberculosis screening: No symptoms or risk factors identified. Assessment: 12:22 Musculoskeletal: Circulation, motion, and sensation intact. Capillary refill < 3 ll1 seconds, in right fingers. 12:23 Reassessment: No changes from previously documented assessment. Patient and/or family ll1 updated on plan of care and expected duration. Pain level reassessed. Patient is alert, oriented x 3, equal unlabored respirations, skin warm/dry/pink. Patient states feeling better. Vital Signs: 10:24 BP 151 / 101; Temp 98(O); Pulse Ox 99% on R/A; Weight 92.99 kg; cc6 12:20 BP 135 / 97; Pulse 85; Resp 17; Temp 98; Pulse Ox 99% ; Pain 0/10; ll1 12:20 Pain Scale: Adult ll1 ED Course: 10:02 Patient arrived in ED. ra3 10:16 Jeremi Nino MD is Attending Physician. artem 10:16 Arm band placed on Patient placed in an exam room, on a stretcher. db 10:50 Annetta Purcell, KRISTIN is Primary Nurse. ll1 10:51 Triage completed. ll1 11:57 Chi Arnold MD is Referral Physician. artem 12:20 Wound care: to laceration located on right arm was dressed with Neosporin, cling, non ll1 adherent dressing. 12:23 Patient has correct armband on for positive identification. Provided Education on: ll1 return to ED for worsening symptoms. 12:23 No provider procedures requiring assistance completed. Patient did not have IV access ll1 during this emergency room visit. Administered Medications: 12:20 Drug: Boostrix Tdap IM 0.5 ml IM once; as a single dose Route: IM; Site: right deltoid; ll1 12:48 Follow up: Response: No adverse reaction ll1 12:20 Drug: Cephalexin PO 500 mg PO once Route: PO; ll1 12:48 Follow up: Response: No adverse reaction ll1 12:20 Drug: Mupirocin Topical Ointment 2 % 1 application Topical once Route: Topical; Site: ll1 affected area; 12:48 Follow up: Response: No adverse reaction ll1 12:48 Drug: Lidocaine-Epinephrine Infiltration -1%: (1:100,000) 8 ml 20 ml Infiltration once; ll1 to bedside {Note: by C. Page.} Volume: 20 ml; Route: Infiltration; 12:49 Follow up: Response: No adverse reaction ll1 Medication: 12:47 VIS not applicable for this client. ll1 Outcome: 11:58 Discharge ordered by MD. mcgill 12:23 Patient left the ED. ll1 12:23 Discharged to home ambulatory, ll1 12:23 Condition: stable 12:23 Discharge instructions given to patient, Instructed on discharge instructions, follow up and referral plans. medication usage, wound care, Demonstrated understanding of instructions, follow-up care, medications, wound care, Prescriptions given X 2, Signatures: Jeremi Nino MD MD cha Lewis, Lynsay, RN RN ll1 Ana Laura Gaviria, RN RN Annemarie Beasley [address] [facility] cc6
[2024-07-31] MEDS ORDERED: CEPHALEXIN 250 MG CAP ONE (12:07)
[2024-07-31] MEDS ORDERED: TDAP (DIPHTH,PERTUSS(ACELL),TET VAC) 0.5 ML VIAL IMVAC ONE (12:07)
[2024-07-31] MEDS ORDERED: MUPIROCIN 2% OINT 22GM TUBE TOP ONE (12:07)
[2024-07-31 12:53] VITALS: BP 151/101; TEMP 98; O2SAT 99
== END 2024-07-31 12:23 | disposition home or self-care (01) ==
LOC: ER 10:00
PROC: 0HQDXZZ Repair Right Lower Arm Skin, External Approach (ICD-10-PCS; principal; 2024-07-31)
DX: S51.811A Laceration without foreign body of right forearm, initial encounter (principal)
CPT/HCPCS: 12002; 96372; 99284

== ENCOUNTER 2024-12-16 20:27 | Emergency (ER) | payer SELFPAY ==
--- NOTE | 2024-12-16 20:48 | EDPHYS ---
Physician Documentation [facility] Name: Jules Amos Age: 39 yrs Sex: Male : 1985 Arrival Date: 12/16/2024 Time: 20:27 Bed IW5 Private MD: ED Physician Juan Miguel Hale HPI: 12/16 20:45 This 39 yrs old Male presents to ER via Ambulatory with complaints of Toothache. rn 20:45 The patient presents with pain, swelling. Onset: The symptoms/episode began/occurred at rn an unknown time. Modifying factors: The symptoms are alleviated by nothing, the symptoms are aggravated by chewing, cold fluids. Severity of symptoms: At their worst the symptoms were moderate, in the emergency department the symptoms are unchanged. The patient has experienced similar episodes in the past. Patient reports right lower dental pain, has bad teeth and has not seen a dentist. Took a few doses of clindamycin that he had leftover and did not help. No fever or chills. No difficulty swallowing.. Historical: - Allergies: 20:39 No Known Allergies; al5 - PMHx: 20:39 adhd; Seizures; al5 - PSHx: 20:39 wrist; al5 - Immunization history:: Adult Immunizations not up to date, Client reports having NOT received the Covid vaccine. Last tetanus immunization: up to date Flu vaccine is not up to date. It has been more than one year since last vaccine. - Infectious Disease History:: Denies. - Social history:: Smoking status: Patient reports the use of cigarette tobacco products, smokes one-half pack cigarettes per day. - Family history:: not pertinent. - Hospitalizations: : No recent hospitalization is reported. ROS: 20:45 Constitutional: Negative for fever, chills, and weight loss, ENT: Positive for dental rn pain and swelling Cardiovascular: Negative for chest pain, palpitations, and edema, Respiratory: Negative for shortness of breath, cough, wheezing, and pleuritic chest pain, Exam: 20:45 Constitutional: This is a well developed, well nourished patient who is awake, alert, rn and in no acute distress. Head/Face: Normocephalic, atraumatic. ENT: Poor general dentition with buccal swelling right lower mandibular region, no evidence of dental or gingival abscess. No fluctuance or abscess noted in buccal space. No stridor. Uvula midline. Cardiovascular: Regular rate and rhythm. No pulse deficits. Vital Signs: 20:38 BP 141 / 93; Pulse 95; Resp 18; Temp 98; Pulse Ox 98% on R/A; Weight 102.06 kg; Height al5 6 ft. 1 in. ; Pain 6/10; 20:38 Body Mass Index 29.68 (102.06 kg, 185.42 cm) al5 20:38 Pain Scale: Adult al5 MDM: 20:39 Medical Screening Exam initiated rn 20:45 Differential diagnosis: dental caries, dental abscess. Data reviewed: vital signs, rn nurses notes, and as a result, I will discharge patient. Counseling: I had a detailed discussion with the patient and/or guardian regarding the historical points, exam findings, and any diagnostic results supporting the discharge/admit diagnosis, the need for outpatient follow up, to return to the emergency department if symptoms worsen or persist or if there are any questions or concerns that arise at home. Special discussion: I discussed with the patient/guardian in detail that at this point there is no indication for admission to the hospital. It is understood, however, that if the symptoms persist or worsen the patient needs to return immediately for re-evaluation. Based on the history and exam findings, there is no indication for further emergent testing or inpatient evaluation. I discussed with the patient/guardian the need to see a dentist for further evaluation of the symptoms. Administered Medications: 21:05 Drug: Amoxicillin-Clavulanate PO 875 mg PO once Route: PO; al5 21:06 Follow up: Response: No adverse reaction; Medication administered at discharge. al5 21:05 Drug: traMADol PO 50 mg PO once Route: PO; al5 21:06 Follow up: Response: No adverse reaction; Medication administered at discharge. al5 21:05 Drug: Gabapentin PO 300 mg PO once Route: PO; al5 21:06 Follow up: Response: No adverse reaction; Medication administered at discharge. al5 Disposition Summary: 12/16/24 20:47 Discharge Ordered Notes: Location: Home rn Problem: new rn Symptoms: have improved rn Condition: Stable rn Diagnosis - Dental caries, unspecified rn Followup: rn - With: Private Physician - When: As needed - Reason: Recheck today's complaints, Re-evaluation by your physician Discharge Instructions: - Discharge Summary Sheet rn - Dental Caries, Adult rn - Dental Pain rn Forms: - Medication Reconciliation Form rn - Antibiotic international relations teacher - Prescription Opioid Use rn - Patient Portal Instructions rn - Leadership Thank You Letter rn Prescriptions: - gabapentin 100 mg Oral capsule - take 1 capsule ORAL route every 12 hours As needed; 14 capsule; Refills: 0, rn Product Selection Permitted - Augmentin 875-125 mg Oral Tablet - take 1 tablet ORAL route every 12 hours for 10 days; 20 tablet; Refills: 0, rn Product Selection Permitted - Tramadol 50 mg Oral Tablet - take 1 tablet ORAL route every 8 hours as needed; 12 tablet; Refills: 0, rn Product Selection Permitted Signatures: Juan Miguel Hale MD MD rn Langhorst, Amanda, RN RN al5
--- NOTE | 2024-12-16 20:48 | ER ---
Nurse's Notes [facility] Name: Jules Amos Age: 39 yrs Sex: Male : 1985 Arrival Date: 12/16/2024 Time: 20:27 Bed IW5 Private MD: Diagnosis: Dental caries, unspecified Presentation: 12/16 20:38 Chief complaint: Patient states: c/o R lower jaw pain and head pain. has an infected al5 tooth R lower jaw. Coronavirus screen: At this time, the client does not indicate any symptoms associated with coronavirus-19. Ebola Screen: No symptoms or risks identified at this time. Initial Sepsis Screen: Does the patient meet any 2 criteria? HR > 90 bpm. No. Patient's initial sepsis screen is negative. Does the patient have a suspected source of infection? No. Patient's initial sepsis screen is negative. Risk Assessment: Do you want to hurt yourself or someone else? Patient reports no desire to harm self or others. Onset of symptoms was December 13, 2024. 20:38 Method Of Arrival: Ambulatory al5 20:38 Acuity: VIDHI 4 al5 Triage Assessment: 20:40 General: Appears in no apparent distress. Behavior is calm, cooperative. Pain: al5 Complains of pain in lower right second bicuspid, lower right first molar and lower right second molar. Pain: Pain currently is 5 out of 10 on a pain scale. EENT: Reports pain in right jaw. Neuro: Level of Consciousness is awake, alert, obeys commands, Oriented to person, place, time, situation. Cardiovascular: Patient's skin is warm and dry. Respiratory: Airway is patent Respiratory effort is even, unlabored, Respiratory pattern is regular, symmetrical. GI: No signs and/or symptoms were reported involving the gastrointestinal system. : No signs and/or symptoms were reported regarding the genitourinary system. Derm: Skin is intact, is healthy with good turgor, Skin is pink, warm \T\ dry. normal. Musculoskeletal: No signs and/or symptoms reported regarding the musculoskeletal system. Historical: - Allergies: 20:39 No Known Allergies; al5 - PMHx: 20:39 adhd; Seizures; al5 - PSHx: 20:39 wrist; al5 - Immunization history:: Adult Immunizations not up to date, Client reports having NOT received the Covid vaccine. Last tetanus immunization: up to date Flu vaccine is not up to date. It has been more than one year since last vaccine. - Infectious Disease History:: Denies. - Social history:: Smoking status: Patient reports the use of cigarette tobacco products, smokes one-half pack cigarettes per day. - Family history:: not pertinent. - Hospitalizations: : No recent hospitalization is reported. Screenin:06 [facility] ED Fall Risk Assessment (Adult) History of falling in the last 3 months, al5 including since admission No falls in past 3 months (0 pts) Confusion or Disorientation No (0 pts) Intoxicated or Sedated No (0 pts) Impaired Gait No (0 pts) Mobility Assist Device Used No (0 pt) Altered Elimination No (0 pt) Score/Fall Risk Level 0 - 2 = Low Risk Oriented to surroundings, Maintained a safe environment, Hourly rounding (assess needs \T\ fall precautionary measures) done. Abuse screen: Denies threats or abuse. Denies injuries from another. Nutritional screening: No deficits noted. Tuberculosis screening: No symptoms or risk factors identified. Assessment: 21:06 Reassessment: see triage assessment. al5 Vital Signs: 20:38 BP 141 / 93; Pulse 95; Resp 18; Temp 98; Pulse Ox 98% on R/A; Weight 102.06 kg; Height al5 6 ft. 1 in. ; Pain 6/10; 20:38 Body Mass Index 29.68 (102.06 kg, 185.42 cm) al5 20:38 Pain Scale: Adult al5 ED Course: 20:28 Patient arrived in ED. jj6 20:39 Triage completed. al5 20:39 Juan Miguel Hale MD is Attending Physician. rn 20:42 Arm band placed on right wrist. Patient placed in waiting room, in view of staff al5 members, Patient notified of wait time. 21:04 Elyssa Reynaga, KRISTIN is Primary Nurse. al5 21:07 Patient has correct armband on for positive identification. Provided Education on: al5 discharge follow up, medications. 21:07 No provider procedures requiring assistance completed. Patient did not have IV access al5 during this emergency room visit. Administered Medications: 21:05 Drug: Amoxicillin-Clavulanate PO 875 mg PO once Route: PO; al5 21:06 Follow up: Response: No adverse reaction; Medication administered at discharge. al5 21:05 Drug: traMADol PO 50 mg PO once Route: PO; al5 21:06 Follow up: Response: No adverse reaction; Medication administered at discharge. al5 21:05 Drug: Gabapentin PO 300 mg PO once Route: PO; al5 21:06 Follow up: Response: No adverse reaction; Medication administered at discharge. al5 Medication: 21:07 VIS not applicable for this client. al5 Outcome: 20:47 Discharge ordered by . rn 21: Discharged to home ambulatory, al5 21:07 Condition: good 21:07 Discharge instructions given to patient, Instructed on discharge instructions, follow up and referral plans. medication usage, Demonstrated understanding of instructions, follow-up care, medications, Prescriptions given X 3, 21:07 Patient left the ED. al5 Signatures: Juan Miguel Hale MD MD rn Jeffries, Jennifer jj6 Langhorst, Amanda, RN RN al5
[2024-12-16] MEDS ORDERED: TRAMADOL HCL 50 MG TAB ONE (21:02)
[2024-12-16] MEDS ORDERED: GABAPENTIN 300 MG CAP ONE (21:02)
[2024-12-16] MEDS ORDERED: AMOX/K CLAV 875 MG TAB ONE (21:02)
[2024-12-17 00:21] VITALS: BP 141/93; TEMP 98; O2SAT 98
== END 2024-12-16 21:07 | disposition home or self-care (01) ==
LOC: ER 20:27
DX: K02.9 Dental caries, unspecified (principal); F17.210 Nicotine dependence, cigarettes, uncomplicated
CPT/HCPCS: 99283

== ENCOUNTER 2025-01-22 22:19 | Emergency (ER) | payer SELFPAY ==
[2025-01-22 23:17] LABS: Absolute Basophils 0.1 K/uL (0-0.5); Absolute Eosinophils 3.2 K/uL (0-0.5); Absolute Lymphocytes (CBC) 2.5 K/uL (0.7-4.9); Absolute Monocytes 0.6 K/uL (0.1-1.3); Absolute Neutrophil 6.3 K/uL (1.8-8.0); Eosinophils % 25.3 % (0-4.4); Hematocrit 42.8 % (39.6-49.0); Hemoglobin 14.8 g/dL (13.6-17.9); Lymphocytes % 19.4 % (15.3-44.8); MCHC 34.6 g/dL (32.0-36.0); MCV 92.7 fL (80-100); MPV 7.7 fL (7.6-11.3); Monocytes % 5.1 % (3.3-12.3); Neutrophils % 49.2 % (41.7-73.7); Nucleated Red Blood Cells % 0.1 % (0-0); Platelets 278 thou/uL (152-406); RBC Red Blood Cell Count 4.62 M/uL (4.33-5.43); Red Cell Distribution Width 13.5 % (12.1-15.2)
[2025-01-22 23:28] LABS: Anion Gap 6.6 mEq/L (5.0-15.0); Potassium 3.6 mEq/L (3.5-5.1); Troponin High Sensitivity 4.3 pg/mL (<58.9)
[2025-01-23] MEDS ORDERED: KETOROLAC 30 MG/ML INJ ONE (00:04)
--- NOTE | 2025-01-23 00:16 | EDPHYS ---
Physician Documentation [facility] Name: Jules Amos Age: 39 yrs Sex: Male : 1985 Arrival Date: 01/22/2025 Time: 22:19 Bed 15 Private MD: ED Physician Garth Zaidi HPI: 01/22 22:24 This 39 yrs old Male presents to ER via Unassigned with complaints of Chest Pain, kb Shortness Of Breath. 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 Pain worse with movement and deep breath. Reports history of seizures, but not on any medication. . Historical: - Allergies: 22:29 No Known Allergies; ha1 - PMHx: 22:29 adhd; Seizures; ha1 - PSHx: 22:29 wrist; ha1 - Immunization history:: Adult Immunizations not immunized. - Infectious Disease History:: Denies. - Social history:: Smoking status: Patient reports the use of cigarette tobacco products, smokes one-half pack cigarettes per day. ROS: 22:26 Constitutional: As per HPI kb Exam: 22:28 Constitutional: This is a well developed, well nourished patient who is awake, alert, kb and in no acute distress. Head/Face: Normocephalic, atraumatic. ENT: Moist Mucous membranes Cardiovascular: Regular rate Respiratory: Respirations even and unlabored. No increased work of breathing. Talking in full sentences Skin: Warm, dry with normal turgor. Normal color. MS/ Extremity: Pulses equal, no cyanosis. Neurovascular intact. Full, normal range of motion. Neuro: Awake and alert, GCS 15, oriented to person, place, time, and situation. 22:28 Chest/axilla: Inspection: normal, Palpation: tenderness, that is mild, of the anterior aspect of left upper chest, that totally reproduces the patient's complaints, 22:31 ECG was reviewed by the Attending Physician. kb Vital Signs: 22:25 BP 144 / 94; Pulse 97; Resp 17 S; Temp 98.2; Pulse Ox 98% on R/A; Weight 99.79 kg; ha1 Height 6 ft. 1 in. ; 23:34 BP 139 / 80; Pulse 85; Resp 17 S; Pulse Ox 97% on R/A; ha1 01/23 00:00 BP 127 / 83; Pulse 81; Resp 17; Pulse Ox 94% on R/A; ay 03 22:25 Body Mass Index 29.03 (99.79 kg, 185.42 cm) 1 MDM: 03 22:23 Medical Screening Exam initiated 01/23 00:14 Differential diagnosis: acute mi, arrhythmia, anxiety, muscle strain. Data reviewed: vital signs, nurses notes. Counseling: I had a detailed discussion with the patient and/or guardian regarding the historical points, exam findings, and any diagnostic results supporting the discharge/admit diagnosis, lab results, radiology results, the need for outpatient follow up, a family practitioner, to return to the emergency department if symptoms worsen or persist or if there are any questions or concerns that arise at home. 00:17 Independent interpretation of the following test(s) in the Emergency Department X-Ray: kb My interpretation is no abnormalities. 01/22 22:28 Order name: Basic Metabolic Panel; Complete Time: 23:30 kb 01/22 22:28 Order name: CBC with Diff; Complete Time: 00:21 kb 01/22 22:28 Order name: Troponin HS; Complete Time: 23:30 kb 01/22 23:31 Order name: Manual Differential; Complete Time: 00:21 EDMS 01/22 22:28 Order name: XRAY Chest (1 view) 01/22 22:28 Order name: EKG; Complete Time: 22:28 kb 01/22 22:28 Order name: Cardiac monitoring; Complete Time: 22:44 kb 01/22 22:28 Order name: EKG - Nurse/Tech; Complete Time: 22:44 kb 01/22 22:28 Order name: IV Saline Lock; Complete Time: 22:44 kb 01/22 22:28 Order name: Labs collected and sent; Complete Time: 22:44 kb 01/22 22:28 Order name: O2 Per Protocol; Complete Time: 22:44 kb 01/22 22:28 Order name: O2 Sat Monitoring; Complete Time: 22:44 kb EC/01 22:31 Rate is 96 beats/min. Rhythm is regular. QRS [place] is Normal. SC interval is normal at kb 148 msec. QRS interval is normal at 98 msec. QT interval is normal at 434 msec. Administered Medications: 01/23 00:07 Drug: Ketorolac IVP 15 mg IVP once Route: IVP; Site: right antecubital; ay 00:31 Follow up: Response: No adverse reaction ay Disposition Summary: 01/23/25 00:15 Discharge Ordered Notes: Location: Home kb Condition: Stable kb Diagnosis - Chest pain, unspecified kb Followup: kb - With: Emergency Department - When: As needed - Reason: Worsening of condition Followup: kb - With: Private Physician - When: 2 - 3 days - Reason: Recheck today's complaints, Continuance of care, Re-evaluation by your physician Discharge Instructions: - Discharge Summary Sheet kb - Chest Wall Pain, [id number] kb Forms: - Medication Reconciliation Form kb - Antibiotic Education kb - Prescription Opioid Use kb - Patient Portal Instructions kb - Leadership Thank You Letter kb Prescriptions: - Diclofenac Sodium 75 mg Oral tablet, delayed release (enteric coated) - take 1 tablet ORAL route 2 times per day As needed; 30 tablet; Refills: 0, kb Product Selection Permitted - orphenadrine citrate 100 mg Oral Tablet Sustained Release - take 1 tablet ORAL route 2 times per day As needed; 20 tablet; Refills: 0, kb Product Selection Permitted Signatures: Dispatcher [employer] EDMS Mari Tanner, BR[place]-C BILLET SHEARER-Dorinda Rothman, RN RN ha1 Marco Fonseca RN RN ay Corrections: (The following items were deleted from the chart) 01/22 22:28 22:28 BASIC METABOLIC PANEL+C.LAB.BRZ ordered. EDMS EDMS 22:28 22:28 CBC+H.LAB.BRZ ordered. EDMS EDMS 22:28 22:28 Troponin High Sensitivity+C.LAB.BRZ ordered. EDMS EDMS
--- NOTE | 2025-01-23 00:16 | ER ---
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 SHORTNESS ha1 OF BREATH. 22:25 Coronavirus screen: Client denies travel out of the [place] in the last 14 days. Ebola ha1 Screen: No symptoms or risks identified at this time. Initial Sepsis Screen: Does the patient meet any 2 criteria? No. Patient's initial sepsis screen is negative. Does the patient have a suspected source of infection? No. Patient's initial sepsis screen is negative. Risk Assessment: Do you want to hurt yourself or someone else? Patient reports no desire to harm self or others. Onset of symptoms was January 22, 2025. 22:25 Method Of Arrival: Ambulatory ha1 22:25 Acuity: VIDHI 2 ha1 Triage Assessment: 22:29 General: Appears uncomfortable, Behavior is calm, cooperative. Pain: Complains of pain ha1 in chest Pain radiates to left arm Pain currently is 4 out of 10 on a pain scale. Quality of pain is described as pressure. Neuro: Level of Consciousness is awake, alert, obeys commands, Oriented to person, place, time, situation. Cardiovascular: Capillary refill < 3 seconds Patient's skin is warm and dry. Respiratory: Airway is patent Respiratory effort is even, unlabored, Respiratory pattern is regular, symmetrical. Historical: - Allergies: 22:29 No Known Allergies; ha1 - PMHx: 22:29 adhd; Seizures; ha1 - PSHx: 22:29 wrist; ha1 - Immunization history:: Adult Immunizations not immunized. - Infectious Disease History:: Denies. - Social history:: Smoking status: Patient reports the use of cigarette tobacco products, smokes one-half pack cigarettes per day. Screenin:30 [facility] ED Fall Risk Assessment (Adult) History of falling in the last 3 months, vc1 including since admission No falls in past 3 months (0 pts) Confusion or Disorientation No (0 pts) Intoxicated or Sedated No (0 pts) Impaired Gait No (0 pts) Mobility Assist Device Used No (0 pt) Altered Elimination No (0 pt) Score/Fall Risk Level 0 - 2 = Low Risk Oriented to surroundings, Maintained a safe environment, Educated pt \T\ family on fall prevention, incl call for assistance when getting out of bed. Abuse screen: Denies threats or abuse. Nutritional screening: No deficits noted. Tuberculosis screening: No symptoms or risk factors identified. Assessment: 23:33 Reassessment: Patient and/or family updated on plan of care and expected duration. Pain ha1 level reassessed. Patient is alert, oriented x 3, equal unlabored respirations, skin warm/dry/pink. Vital Signs: 22:25 BP 144 / 94; Pulse 97; Resp 17 S; Temp 98.2; Pulse Ox 98% on R/A; Weight 99.79 kg; ha1 Height 6 ft. 1 in. ; 23:34 BP 139 / 80; Pulse 85; Resp 17 S; Pulse Ox 97% on R/A; ha1 01/23 00:00 BP 127 / 83; Pulse 81; Resp 17; Pulse Ox 94% on R/A; ay 01/22 22:25 Body Mass Index 29.03 (99.79 kg, 185.42 cm) [facility] ED Course: 01/22 22:21 Patient arrived in ED. jj6 22:23 Mari Tanner FNP-C [facility]. kb 22:23 Garth Zaidi MD is Attending Physician. kb 22:25 Arm band placed on right wrist. EKG completed in triage. Results shown to MD. vc1 22:29 Triage completed. ha1 22:30 Patient maintains SpO2 saturation greater than 95% on room air. vc1 22:30 Patient has correct armband on for positive identification. Bed in low position. Call vc1 light in reach. Provided Education on: call light. school lunch monitor on. Pulse ox on. NIBP on. :44 Basic Metabolic Panel Sent. vc1 :44 CBC with Diff Sent. vc1 22:44 Troponin HS Sent. vc1 22:44 Inserted saline lock: 20 gauge in right antecubital area, using aseptic technique. vc1 Blood collected. Flushed with 10 mL NS. 22:56 XRAY Chest (1 view) In Process Unspecified. EDMS 01/23 00:00 IV discontinued, intact, bleeding controlled, No redness/swelling at site. Pressure ay dressing applied. 00:03 Marco Fonseca, RN is Primary Nurse. ay Administered Medications: 00:07 Drug: Ketorolac IVP 15 mg IVP once Route: IVP; Site: right antecubital; ay 00:31 Follow up: Response: No adverse reaction ay Medication: 01/22 23:03 VIS not applicable for this client. vc1 Outcome: 01/23 00:00 Discharged to home ambulatory, ay Condition: stable Discharge instructions given to patient, Instructed on discharge instructions, follow up and referral plans. Demonstrated understanding of instructions, follow-up care, medications, Prescriptions given X 2, 00:15 Discharge ordered by . melvin 00:31 Patient left the ED. ay Signatures: Dispatcher [employer] EDMS Mari Tanner, TIPPLE MECHANIC-C TIPPLE MECHANIC-CkMarichuy Barrera jj6 Iona Camilo RN RN vc1 Dorinda Koch RN RN 1 Marco Fonseca RN RN
[2025-01-23 00:19] LABS: Band Neutrophils 2 % (0-1); Differential Total Cells Count 100; Eosinophils 27 % (0-3); Lymphocytes 21 % (15-42); Monocytes 4 % (0-10); Segmented Neutrophils 46 % (40-80)
[2025-01-23 00:20] LABS: Blood Morphology Comment NOT SEEN (NOT SEEN); Platelet Estimate ADEQ
--- NOTE | 2025-01-23 00:34 | RAD REPORT ---
CLINICAL HISTORY: Chest pain. COMPARISON: None. TECHNIQUE: XR CHEST 1 VIEW 01/22/2025 10:28 PM ELIGIBILITY COUNSELOR FINDINGS: Cardiac silhouette is normal in size. Lungs are clear without consolidation, atelectasis, mass or michaela ma. There is no pleural effusion. There is no pneumothorax. There are no acute osseous findings. IMPRESSION: Clear lungs. Electronically signed by: Andrew Mahajan MD 01/23/2025 12:30 AM ELIGIBILITY COUNSELOR RP Transcribed Date/Time: 01/23/2025 12:34 AM
[2025-01-23 00:36] VITALS: TEMP 98.2
[2025-01-23 00:39] VITALS: BP 127/83; O2SAT 94
--- NOTE | 2025-01-24 12:08 | EKG ---
Test Date: 2025-01-22 Test Time: 22:29:31 Photogrammetric Tech: SOLIS MEASUREMENT RESULTS: Intervals: Rate: 96 WI: 148 QRSD: 98 QT: 344 QTc: 434 [place]: P: 61 WI: 148 QRS: 26 T: 62 INTERPRETIVE STATEMENTS: Normal sinus rhythm Normal ECG Compared to ECG 07/19/2013 04:01:58 No significant changes Electronically Signed On 01-24-25 12:03:42 RADIO MECHANIC by Urban Reilly
== END 2025-01-23 00:31 | disposition home or self-care (01) ==
LOC: ER 22:19
DX: R07.9 Chest pain, unspecified (principal); R06.02 Shortness of breath
CPT/HCPCS: 36415; 71045; 80048; 84484; 85025; 93005; 96374; 99285